=== PATIENT | female | born 1995 | race Caucasian/White ===

== ENCOUNTER 2018-01-24 06:05 | Inpatient (IN) | payer OTHER ==
[~2018-01-24] VITALS: Ht 154.9 cm; Wt 76.3 kg
[2018-01-24] MEDS ORDERED: OXYTOCIN 30U/ 0.9% NaCL 500ML 500 ML IV PRN (06:13)
[2018-01-24] MEDS ORDERED: OXYTOCIN 30U/ 0.9% NaCL 500ML 500 ML IV ONE (06:13)
[2018-01-24 06:21] VITALS: BP 109/70
[2018-01-24] MEDS ORDERED: PREN-3 PO (06:28)
[2018-01-24] MEDS ORDERED: ONDANSETRON 2MG/ML, 2ML IVPush PRN (06:30)
[2018-01-24] MEDS ORDERED: FENTANYL PF 100 MCG/2ML IVPush PRN (06:30)
[2018-01-24] MEDS ORDERED: FENTANYL PF 100 MCG/2ML IV PRN (06:30)
[2018-01-24 06:33] LABS: BASOPHILS # (AUTO) 0.05 x10^3/uL (0-0.1); BASOPHILS % (AUTO) 0 % (0-1); EOSINOPHILS # (AUTO) 0.07 x10^3/uL (0-0.4); EOSINOPHILS % (AUTO) 1 % (1-7); LYMPHOCYTES # (AUTO) 2.76 x10^3/uL (1-3.4); LYMPHOCYTES % (AUTO) 24 % (22-44); MD NO; MEAN CORPUSCULAR HEMOGLOBIN 28.3 pg (27.0-34.8); MEAN CORPUSCULAR HGB CONC 33.5 g/dL (32.4-35.8); MEAN CORPUSCULAR VOLUME 84.5 fL (80-100); MEAN PLATELET VOLUME 8.4 fL (7.4-10.4); MONOCYTES # (AUTO) 0.56 x10^3/uL (0.2-0.8); MONOCYTES % (AUTO) 5 % (2-9); NEUTROPHILS # (AUTO) 8.29 x10^3/uL (1.8-6.8); NEUTROPHILS % (AUTO) 71 % (42-75); PLATELET COUNT 263 x10^3/uL (130-400); RED BLOOD COUNT 4.79 x10^6/uL (3.82-5.3); RED CELL DISTRIBUTION WIDTH 15.1 % (9.6-15.2)
[2018-01-24] MEDS: LACTATED RINGERS 1,000 ML IV SCH ×5 (06:41→21:47)
[2018-01-24] MEDS ORDERED: MISOPROSTOL 25 MCG TABLET VG PRN (07:30)
[2018-01-24] MEDS ORDERED: OXYTOCIN 30U/ 0.9% NaCL 500ML 500 ML ONE (07:33)
[2018-01-24] MEDS ORDERED: MISOPROSTOL 25 MCG TABLET ONE (07:33)
[2018-01-24] MEDS ORDERED: BUPIVACAINE/PF 0.25% ONE (13:45)
[2018-01-24] MEDS ORDERED: FENTANYL/BUPIV./NS/PF 250 ML EPIDCONT ONE (13:46)
[2018-01-24] MEDS ORDERED: FENTANYL/BUPIV./NS/PF 250 ML EPIDCONT SCH (13:47)
[2018-01-24] MEDS ORDERED: LACTATED RINGERS 1,000 ML IVBOLUS PRN (14:00)
[2018-01-24] MEDS ORDERED: NALOXONE 0.4 MG/ML, 1ML IVPush PRN (14:00)
[2018-01-24] MEDS ORDERED: EPHEDRINE 50 MG/ML, 1ML IVPush PRN (14:00)
[2018-01-24] MEDS: D5%-LACTATED RINGERS 1,000 ML IV SCH (18:37)
[2018-01-24] MEDS: OXYTOCIN 30U/ 0.9% NaCL 500ML 500 ML IV SCH (19:42)
[2018-01-24] MEDS ORDERED: ACETAMINOPHEN 325 MG TABLET PO PRN (20:00)
[2018-01-24] MEDS ORDERED: ONDANSETRON 2MG/ML, 2ML IV PRN (20:00)
[2018-01-24] MEDS ORDERED: MISOPROSTOL 200 MCG TABLET PR PRN (20:00)
[2018-01-24] MEDS ORDERED: DOCUSATE 100 MG CAPSULE PO PRN (20:00)
[2018-01-24] MEDS ORDERED: OXYcodone IR 5MG TABLET PO PRN (20:00)
[2018-01-24] MEDS ORDERED: IBUPROFEN 600 MG TABLET ONE (21:02)
[2018-01-24] MEDS: IBUPROFEN 600 MG TABLET PO PRN (21:16)
[2018-01-24 21:35] VITALS: BP 113/66
[2018-01-25] VITALS: BP 102/64
[2018-01-25] MEDS: D5%-LACTATED RINGERS 1,000 ML IV SCH ×3 (00:26→16:26)
[2018-01-25] MEDS: IBUPROFEN 600 MG TABLET PO PRN ×2 (03:05→12:17)
[2018-01-25 03:10] VITALS: BP 106/64
[2018-01-25 03:11] LABS: BASOPHILS # (AUTO) 0.06 x10^3/uL (0-0.1); BASOPHILS % (AUTO) 0 % (0-1); EOSINOPHILS # (AUTO) 0.08 x10^3/uL (0-0.4); EOSINOPHILS % (AUTO) 1 % (1-7); LYMPHOCYTES # (AUTO) 2.65 x10^3/uL (1-3.4); LYMPHOCYTES % (AUTO) 16 % (22-44); MD NO; MEAN CORPUSCULAR HEMOGLOBIN 28.7 pg (27.0-34.8); MEAN CORPUSCULAR HGB CONC 33.7 g/dL (32.4-35.8); MEAN CORPUSCULAR VOLUME 85.4 fL (80-100); MEAN PLATELET VOLUME 8.4 fL (7.4-10.4); MONOCYTES # (AUTO) 0.93 x10^3/uL (0.2-0.8); MONOCYTES % (AUTO) 6 % (2-9); NEUTROPHILS % (AUTO) 78 % (42-75); PLATELET COUNT 234 x10^3/uL (130-400); RED BLOOD COUNT 4.29 x10^6/uL (3.82-5.3); RED CELL DISTRIBUTION WIDTH 14.8 % (9.6-15.2)
[2018-01-25] MEDS: OXYTOCIN 30U/ 0.9% NaCL 500ML 500 ML IV SCH ×2 (05:42→15:42)
[2018-01-25 07:30] VITALS: BP 110/72
[2018-01-25] MEDS: OXYcodone/APAP 5/325MG TABLET PO PRN ×2 (08:09→12:17)
[2018-01-25] MEDS ORDERED: PRENATAL VIT/IRON/FA 1 EACH TABLET PO SCH (09:00)
[2018-01-25] MEDS ORDERED: IBUP-1222 PO (11:49)
[2018-01-25 12:00] VITALS: BP 124/71
[2018-01-25 16:45] VITALS: BP 136/82
== END 2018-01-25 17:54 | disposition home or self-care (01) | DRG 775 ==
LOC: LDIP 06:05 → 2NW 21:19
PROVIDERS: ADMIT Obstetrics & Gynecology; ATTEND Obstetrics & Gynecology
PROC: 10E0XZZ Delivery of Products of Conception, External Approach (ICD-10-PCS; principal; 2018-01-24)
PROC: 0HQ9XZZ Repair Perineum Skin, External Approach (ICD-10-PCS; 2018-01-24)
PROC: 0UQMXZZ Repair Vulva, External Approach (ICD-10-PCS; 2018-01-24)
PROC: 3E0R3BZ Introduction of Anesthetic Agent into Spinal Canal, Percutaneous Approach (ICD-10-PCS; 2018-01-24)
PROC: 00HU33Z Insertion of Infusion Device into Spinal Canal, Percutaneous Approach (ICD-10-PCS; 2018-01-24)
PROC: 10907ZC Drainage of Amniotic Fluid, Therapeutic from Products of Conception, Via Natural or Artificial Opening (ICD-10-PCS; 2018-01-24)
DX: O70.0 First degree perineal laceration during delivery (principal); O71.82 Other specified trauma to perineum and vulva; Z37.0 Single live birth
CPT/HCPCS: 36415; 85025; 86850; 86900; J2590; J7120; J7121